=== PATIENT | male | born 1995 | race Caucasian/White ===

== ENCOUNTER 2017-07-09 00:36 | Emergency (ER) | payer BC ==
[~2017-07-09] VITALS: Ht 175.3 cm; Wt 93.0 kg
[2017-07-09] MEDS ORDERED: CEFTRIAXONE SOD 1 GM VIAL IM ONE (01:15)
[2017-07-09] MEDS ORDERED: HYDROCODONE/APAP 5MG-325MG TAB PO ONE (01:15)
[2017-07-09 01:16] VITALS: BP 159/92
== END 2017-07-09 01:40 | disposition home or self-care (01) ==
LOC: FSED 00:36
DX: K08.89 Other specified disorders of teeth and supporting structures (principal); L03.032 Cellulitis of left toe; F17.210 Nicotine dependence, cigarettes, uncomplicated
CPT/HCPCS: 99283; J0696

== ENCOUNTER 2017-11-19 17:10 | Emergency (ER) | payer BC ==
[~2017-11-19] VITALS: Ht 175.3 cm; Wt 93.0 kg
--- NOTE | 2017-11-19 18:10 | Diagnostic Imaging Report ---
EXAMINATION: PA and lateral views of the chest. COMPARISON: None CLINICAL HISTORY: Chest pain and intermittent dizziness for one week DISCUSSION: Lines/tubes: None. Lungs: The lungs are well inflated and clear. There is no evidence of pneumonia or pulmonary edema. Pleura: There is no pleural effusion or pneumothorax. Heart and mediastinum: Cardiomediastinal silhouette is unremarkable. Pulmonary vasculature is normal. Bones and soft tissues: No acute bony abnormalities. IMPRESSION: No acute cardiopulmonary abnormalities. Signed by: Dr. Nish Avery M.D. on 11/19/2017 6:05 PM
[2017-11-19 18:45] VITALS: BP 160/90
== END 2017-11-19 18:41 | disposition home or self-care (01) ==
LOC: FSED 17:10
DX: R07.89 Other chest pain (principal); I10 Essential (primary) hypertension
CPT/HCPCS: 71046; 93005; 99284

== ENCOUNTER 2018-02-20 23:38 | Emergency (ER) | payer BC ==
[~2018-02-20] VITALS: Ht 175.3 cm; Wt 93.0 kg
--- OUTSIDE RECORDS SUMMARY | 2018-02-20 23:42 | XMS REPORT ---
Author Author [facility] Address Unknown Phone Unavailable Care Team Providers Care Intern Brand Name Role Phone Sonu HIGHTOWER Unavailable Unavailable Problems This patient has no known problems. Allergies, Adverse Reactions, Alerts This patient has no known allergies or adverse reactions. Medications This patient has no known medications. Results Test Description Test Time Test Comments Text Results Atomic Results Result Comments CXR 2 VIEW - [facility] 2017-11-19 18:05:00 [place] [address] Patient Name: JOELLEN TOWNSEND MR #: [id number] : 1995 Age/Sex: 22/M Req #: [id number] Adm Physician: Ordered by: GLORY HIGHTOWER MD Report #: [id number] Location: [facility] Room/Bed: Procedure: [id number] HOPD/CXR 2 VIEW - [facility] Exam Date: 11/19/17 Exam Time: 1740 REPORT STATUS: Signed EXAMINATION: PA and lateral views of the chest. COMPARISON: None CLINICAL HISTORY: Chest pain and intermittent dizziness for one week DISCUSSION: Lines/tubes: None. Lungs: The lungs are well inflated an d clear. There is no evidence of pneumonia or pulmonary edema. Pleura: There is no pleural effusion or pneumothorax. Heart and mediastinum: Cardiomediastinal silhouette is unremarkable. Pulmonary vasculature is normal. Bones and soft tissues: No acute bony abnormalities. IMPRESSION: No acute cardiopulmonary abnormalities. Signed by: Dr. Wisam Avery M.D. on 11/19/2017 6:05 PM Dictated By: WISAM AVERY MD 04 Transcribed By: JAMILA on 11/19/171804 COPY TO: GLORY HIGHTOWER MD
[2018-02-21] MEDS ORDERED: HYDROCODONE/APAP 5MG-325MG TAB PO ONE (00:15)
[2018-02-21] MEDS ORDERED: KETOROLAC TROMETHAMINE 60 MG/2 ML VIAL IM ONE (00:15)
== END 2018-02-21 00:35 | disposition home or self-care (01) ==
LOC: FSED 23:38
DX: M54.6 Pain in thoracic spine (principal); S23.3XXA Sprain of ligaments of thoracic spine, initial encounter; M54.5 Low back pain; S33.5XXA Sprain of ligaments of lumbar spine, initial encounter; M62.830 Muscle spasm of back
CPT/HCPCS: 99283

== ENCOUNTER 2019-03-14 18:29 | Emergency (ER) | payer BC ==
[~2019-03-14] VITALS: Ht 180.3 cm; Wt 103.0 kg
== END 2019-03-14 21:07 | disposition home or self-care (01) ==
LOC: FSED 18:29
DX: L05.01 Pilonidal cyst with abscess (principal)
CPT/HCPCS: 10060; 99283

== ENCOUNTER 2019-04-11 20:07 | Emergency (ER) | payer SELFPAY ==
[~2019-04-11] VITALS: Ht 180.3 cm; Wt 103.0 kg
[2019-04-11] MEDS: AZITHROMYCIN 250 MG TAB PO ONE (21:21)
[2019-04-11] MEDS ORDERED: AZITHROMYCIN 250 MG TAB ONE (21:24)
== END 2019-04-11 21:50 | disposition home or self-care (01) ==
LOC: FSED 20:07
DX: M54.2 Cervicalgia (principal); L04.0 Acute lymphadenitis of face, head and neck; F17.290 Nicotine dependence, other tobacco product, uncomplicated
CPT/HCPCS: 80048; 85025; 99283

== ENCOUNTER 2019-10-04 17:23 | Emergency (ER) | payer BC ==
[~2019-10-04] VITALS: Ht 172.7 cm; Wt 101.3 kg
--- NOTE | 2019-10-04 17:58 | Emergency Department Note ---
History of Present Illnes History of Present Illness Chief Complaint: Skin Rash or Abscess History of Present Illness This is a 24 year old male . Chief Complaint Comment Reports that he has an abscess on his coccyx and he has had a recent incision and drain on the same site but it has come up again. Pt has had it for about a week now and it is painful to sit and thinks that it may be infected. Historian: Patient Arrival Mode: Car Onset (how long ago): day(s) (2) Location: back Quality: sharp Radiation: Denies non-radiation, Denies back, Denies neck, Denies extremity, Denies abdomen, Denies periumbilical, Denies flank, Denies proximal, Denies distal, Denies other Severity: moderate Onset quality: gradual Duration (how long): day(s) (3) Timing of current episode: constant Progression: worsening Chronicity: new Context: Denies recent illness, Denies recent surgery, Denies recent immobilization, Denies recent travel, Denies trauma/injury, Denies new medications, Denies hx of DVT/PE, Denies non-compliance w/ medications, Denies other Relieving factors: none Exacerbating factors: none Associated symptoms: Reports denies other symptoms Treatments prior to arrival: none Past Medical/Family History Physician Review I have reviewed the patient's past medical and family history. Any updates have been documented here. Past Medical History Recent Fever: No Clinical Suspicion of Infectio: No New/Unexplained Change in Ment: No Past Medical History: Hypertension Other Medical History: obesity Past Surgical History: None Other Surgery: ear tubes Social History Smoking Cessation: Current every day smoker Counseling Performed: Yes Alcohol Use: Occasional Any Illegal Drug Use: No Physically hurt or threatened: No Other Last Tetanus: UNK Any Pre-Existing Lines (PICC,: No Review of Systems Review of Systems Constitutional: Reports no symptoms EENTM: Reports no symptoms Cardiovascular: Reports no symptoms Respiratory: Reports no symptoms Gastrointestinal: Reports no symptoms Genitourinary: Reports no symptoms Musculoskeletal: Reports no symptoms Integumentary: Reports as per HPI Neurological: Reports no symptoms Psychological: Reports no symptoms Endocrine: Reports no symptoms Hematological/Lymphatic: Reports no symptoms Physical Exam Related Data Allergies: Coded Allergies: shellfish derived (Verified Allergy, Severe, anaphylaxis, 10/04/19) can have iodine Triage Vital Signs Vital Signs Date Time Temp Pulse Resp B/P (MAP) Pulse Ox O2 Delivery O2 Flow Rate FiO2 10/04/19 17:35 99.4 79 20 150/73 100 Room Air Vital signs reviewed: Yes Physical Exam CONSTITUTIONAL Constitutional: Present well-developed, Present well-nourished HENT HENT: Present normocephalic, Present atraumatic, Present oropharynx clear/moist, Present nose normal HENT L/R: Present left ext ear normal, Present right ext ear normal EYES Eyes: Reports PERRL, Reports conjunctivae normal NECK Neck: Present ROM normal PULMONARY Pulmonary: Present effort normal, Present breath sounds normal CARDIOVASCULAR Cardiovascular: Present regular rhythm, Present heart sounds normal, Present capillary refill normal, Present normal rate GASTROINTESTINAL Abdominal: Present soft, Present nontender, Present bowel sounds normal GENITOURINARY Genitourinary: Present exam deferred, Present other (pelonodial abscess) SKIN Skin: Present warm, Present dry MUSCULOSKELETAL Musculoskeletal: Present ROM normal NEUROLOGICAL Neurological: Present alert, Present oriented x 3, Present no gross motor or se nsory deficits PSYCHOLOGICAL Psychological: Present mood/affect normal, Present judgement normal Procedures Incision and Drain Type of anesthesia: local Risks and benefits discussed: Yes Verbal consent obtained: Yes Consent given by: patient Prepped and draped in sterile: Yes Identity confirmed by: patient Procedure verified: Yes Type: pilonidal cyst Size: 8x8 Site: back Skin preparation: Betadine Anesthesia method: local infiltration Incision type: single straight Incision depth: submucosal Scalpel blade: 11 Drainage: purulent Drainage amount: moderate Wound treatment: wound left open Assessment & Plan Medical Decision Making [facility] pilonodal cyst Reassessment Reassessment time: 17:57 Reassessment better Assessment & Plan Final Impression: (1) Pilonidal cyst with abscess Depart Disposition: HOME, SELF-CARE Last Vital Signs Date Time Temp Pulse Resp B/P (MAP) Pulse Ox O2 Delivery O2 Flow Rate FiO2 10/04/19 17:35 99.4 79 20 150/73 100 Room Air MARLYS GALLEGOS MD Oct 04, 2019 17:58
--- OUTSIDE RECORDS SUMMARY | 2019-10-04 18:08 | XMS REPORT | Continuity of Care Document ---
Author Author [facility] t Organization [facility] Address [address] [place] [address] Phone Unavailable Care Team Providers Care Diesel Dinkey Engineer Name Role Phone MURIEL SYLVAIN PCP Sonu HIGHTOWER At[place] Unavailable Payers Payer Name Policy Type Policy Number Effective Date Expiration Date S macy [facility] [id number] 2013 00:00:00 09-27 00:00:00 [facility] Problems This patient has no known problems. Allergies, Adverse Reactions, Alerts This patient has no known allergies or adverse reactions. Medications This patient has no known medications. Procedures Procedure Date / Time Performed Performing Clinician Sour e DRAINAGE OF PILONIDAL CYST 2019-03-14 00:00:00 HANK RUSSO [facility] Encounters Start Date/Time End Date/Time Encounter Type Admission Type Attendi [facility] Care Department Encounter ID Source 2019-04-11 20:07:00 2019-04-11 21:50:[address] [facility] [id number] [facility] 2019-03-14 18:29:00 2019-03-14 21:07:[address] [facility] [id number] [facility] 2018-02-20 23:38:00 2018-02-20 23:38:[address] [facility] [id number] [facility] 2017-11-19 17:10:00 2017-11-19 18:41:00 Departed Emergency Room [address] [facility] [id number] [facility] 2017-07-09 00:36:00 2017-07-09 01:40:[address] [facility] [id number] [facility] Results Test Description Test Time Test Comments Results Result Comments Source CXR 2 VIEW - [facility] 2017-11-19 18:05:00 [facility] [address] [place] [address] Patient Name: JOELLEN TOWNSEND MR #: [id number] : 1995 Age/Sex: 22/M Req #: [id number] Adm Physician: Ordered by: GLORY HIGHTOWER MD Report #: [id number] Location: [facility] Room/Bed: Procedure: [id number] HOPD/CXR 2 VIEW - [facility] Exam Date: 11/19/17 Exam Time: 1740 [...]
== END 2019-10-04 18:01 | disposition home or self-care (01) ==
LOC: FSED 17:23
DX: L05.01 Pilonidal cyst with abscess (principal); I10 Essential (primary) hypertension; E66.9 Obesity, unspecified
CPT/HCPCS: 10080; 99283

== ENCOUNTER 2020-09-20 12:11 | Emergency (ER) | payer BC, OTHER ==
[~2020-09-20] VITALS: Ht 172.7 cm; Wt 99.3 kg
[2020-09-20] MEDS ORDERED: ACETAMINOPHEN500 MG PO (12:44)
[2020-09-20] MEDS ORDERED: CLEOCIN HCL300 MG PO (12:44)
[2020-09-20] MEDS ORDERED: DOXYCYCLINE HY100 MG PO (12:44)
[2020-09-20] MEDS ORDERED: ULTRAM 50MG50 MG PO (12:44)
[2020-09-20] MEDS: ONDANSETRON HCL 4 MG ORAL DISINTEGRATING TAB PO ONE (12:59)
[2020-09-20] MEDS: KETOROLAC TROMETHAMINE 60 MG/2 ML VIAL IM ONE (12:59)
[2020-09-20] MEDS: LIDOCAINE HCL 2% LOCAL 20 ML VIAL INJ STA (12:59)
[2020-09-20] MEDS: HYDROCODONE/APAP 5MG-325MG TAB PO ONE (12:59)
[2020-09-20] MEDS: DOXYCYCLINE HYCLATE TABLET 100 MG TAB PO STA (13:03)
[2020-09-20] MEDS: CEPHALEXIN 500 MG CAP PO STA (13:06)
== END 2020-09-20 14:15 | disposition home or self-care (01) ==
LOC: FSED 12:16
DX: L02.415 Cutaneous abscess of right lower limb (principal); E66.9 Obesity, unspecified
CPT/HCPCS: 10061; 87071; 87205; 96372; 99284; J1885; J2001; Q0162

== ENCOUNTER 2020-11-25 14:08 | Emergency (ER) | payer OTHER ==
[~2020-11-25] VITALS: Ht 172.7 cm; Wt 99.3 kg
[~2020-11-25 14:08] MED LIST: ACETAMINOPHEN500 MG PO; CLEOCIN HCL300 MG PO; DOXYCYCLINE HY100 MG PO; ULTRAM 50MG50 MG PO
[2020-11-25] MEDS ORDERED: BACTRIM DS TAB1 EACH PO (14:28)
[2020-11-25] MEDS ORDERED: ACETAMINOPHEN-1 EAC4 PO (14:28)
[2020-11-25] MEDS ORDERED: CEPHALEXIN500 MG PO (14:28)
== END 2020-11-25 14:41 | disposition home or self-care (01) ==
LOC: FSED 14:09
DX: L05.01 Pilonidal cyst with abscess (principal); E66.9 Obesity, unspecified
CPT/HCPCS: 99283

== ENCOUNTER 2020-11-25 18:30 | Emergency (ER) | payer OTHER ==
[~2020-11-25] VITALS: Ht 172.7 cm; Wt 99.3 kg
[~2020-11-25 18:30] MED LIST changes: +ACETAMINOPHEN-1 EAC4 PO; +BACTRIM DS TAB1 EACH PO; +CEPHALEXIN500 MG PO
[2020-11-25] MEDS ORDERED: ACETAMINOPHEN 325 MG TAB PO STA (18:47)
== END 2020-11-25 20:37 | disposition home or self-care (01) ==
LOC: FSED 18:34
DX: L76.22 Postprocedural hemorrhage of skin and subcutaneous tissue following other procedure (principal); I10 Essential (primary) hypertension; E66.9 Obesity, unspecified
CPT/HCPCS: 99282

== ENCOUNTER 2021-05-31 21:36 | Emergency (ER) | payer SELFPAY ==
[~2021-05-31] VITALS: Ht 172.7 cm; Wt 99.3 kg
[2021-05-31] MEDS ORDERED: ACETAMINOPHEN 325 MG TAB PO ONE (22:00)
[2021-05-31] MEDS ORDERED: LIDOCAINE HCL 1% LOCAL INJ 20 ML VIAL ONE (22:13)
[2021-05-31] MEDS ORDERED: ACETAMINOPHEN 325 MG TAB ONE (22:13)
[2021-05-31] MEDS ORDERED: CEFTRIAXONE 1 GM in SODIUM CHLORIDE 0.9% 50ML 50 ML IV ONE (22:15)
[2021-05-31] MEDS ORDERED: CEFTRIAXONE 1 GM VIAL ONE (22:19)
[2021-05-31] MEDS ORDERED: LIDOCAINE HCL 2% LOCAL 20 ML VIAL ONE (22:19)
[2021-05-31] MEDS ORDERED: CLINDAMYCIN HC300 MG PO (22:34)
[2021-05-31] MEDS ORDERED: DOXYCYCLINE HY100 MG PO (22:35)
[2021-05-31] MEDS ORDERED: MUPIROCIN22 GM TOP (22:48)
== END 2021-05-31 22:47 | disposition home or self-care (01) ==
LOC: FSED 21:53
DX: L05.01 Pilonidal cyst with abscess (principal); I10 Essential (primary) hypertension; E66.9 Obesity, unspecified
CPT/HCPCS: 10081; 99283; J0696; J2001 ×2

== ENCOUNTER 2021-12-16 17:59 | Emergency (ER) | payer SELFPAY ==
[~2021-12-16] VITALS: Ht 170.2 cm; Wt 104.3 kg
[~2021-12-16 17:59] MED LIST changes: +CLINDAMYCIN HC300 MG PO; +MUPIROCIN22 GM TOP
[2021-12-16] MEDS ORDERED: IBUPROFEN 400 MG TAB ONE (18:25)
[2021-12-16] MEDS ORDERED: IBUPROFEN 400 MG TAB PO ONE (18:30)
[2021-12-16] MEDS ORDERED: ZITHROMAX250 MG PO (19:05)
[2021-12-16 19:23] VITALS: BP 134/82
== END 2021-12-16 19:23 | disposition home or self-care (01) ==
LOC: FSED 18:43
DX: R50.9 Fever, unspecified (principal); M79.10 Myalgia, unspecified site; E66.9 Obesity, unspecified
CPT/HCPCS: 83518; 87400; 99282